=== PATIENT | female | born 1995 | race Caucasian/White ===

== ENCOUNTER 2018-04-02 00:40 | Emergency (ER) | payer BC ==
[2018-04-02 00:50] VITALS: RESP 18
[2018-04-02] MEDS ORDERED: MORPHINE SULFATE 4 MG/ML SYRINGE IV STA (01:55)
[2018-04-02] MEDS ORDERED: SODIUM CHLORIDE 0.9% 1,000 ML IV STA (01:55)
[2018-04-02] MEDS ORDERED: ONDANSETRON 4 MG/2 ML VIAL IVP STA (01:55)
[2018-04-02 02:15] LABS: Appearance,Urine Clear (Clear); Basophils % (A) 0 %; Bilirubin,Urine Negative (Negative); Blood,Urine Negative (Negative); Color,Urine Colorless; Eosinophils # (A) 0.5 k/uL (0-0.7); Eosinophils % (A) 4 %; Glucose,Urine (UA) Negative (Negative); HCT 42.6 % (34.0-46.0); HGB 13.7 gm/dL (11.4-16.0); Ketones,Urine Negative (Negative); Leukocyte Esterase,Urine Negative (Negative); Lymphocytes # (A) 2.8 k/uL (1.0-4.8); Lymphocytes % (A) 26 %; MCH 29.6 pg (25.0-35.0); MCHC 32.3 g/dL (31.0-37.0); MCV 91.8 fL (80.0-100.0); Mean Platelet Volume 5.6; Monocytes % (A) 9 %; Neutrophils # (A) 6.1 k/uL (1.3-7.7); Neutrophils % (A) 58 %; Nitrite,Urine Negative (Negative); Platelet Count 244 k/uL (150-450); Protein,Urine Negative (Negative); RBC 4.64 m/uL (3.80-5.40); RDW 12.2 % (11.5-15.5); Specific Gravity,Urine 1.004 (1.001-1.035); Urobilinogen,Urine <2.0 mg/dL (<2.0); WBC 10.6 k/uL (3.8-10.6)
[2018-04-02 02:24] LABS: ALT 31 U/L (9-52); AST 20 U/L (14-36); Albumin 3.7 g/dL (3.5-5.0); Alkaline Phosphatase 81 U/L (38-126); Amylase 34 U/L (30-110); Anion Gap 7 mmol/L; Blood Urea Nitrogen 16 mg/dL (7-17); Calcium 9.3 mg/dL (8.4-10.2); Carbon Dioxide 24 mmol/L (22-30); Chloride 107 mmol/L (98-107); Glucose 97 mg/dL (74-99); Lipase 46 U/L (23-300); Potassium 4.3 mmol/L (3.5-5.1); Sodium 138 mmol/L (137-145); Total Bilirubin 0.3 mg/dL (0.2-1.3); Total Protein 6.4 g/dL (6.3-8.2)
--- NOTE | 2018-04-02 02:43 | XR ---
EXAMINATION TYPE: XR KUB DATE OF EXAM: 04/02/2018 COMPARISON: NONE HISTORY: Abdominal pain TECHNIQUE: 2 views FINDINGS: Bowel gas pattern is normal. There is no sign of intestinal obstruction or pneumoperitoneum . Fecal pattern is normal. Lung bases are clear. There are no pathologic calcifications over the kidn eys. IMPRESSION: Nonacute abdomen.
[2018-04-02] MEDS ORDERED: ACET/COD 300 MG/30 MG STARTER PACK 6 TAB BTL PO STA (03:00)
--- NOTE | 2018-04-02 03:00 | ED ---
Abdominal Pain HPI - General Chief Complaint: Abdominal Pain Stated Complaint: abd pain Time Seen by Provider: 04/02/18 01:26 Source: patient Mode of arrival: ambulatory Limitations: no limitations - History of Present Illness Initial Comments: 22-year-old female patient presents to the emergency department today for evaluation of lower abdominal pain. Patient states that pain started earlier today and has been progressively worsening. Patient states that the pain radiates across her entire lower abdomen. States that 2 days ago she had similar type pain and did have 2-3 episodes of diarrhea. Patient states she has not had a bowel movement since . Denies any hematuria, dysuria, urinary frequency, urinary urgency. She denies any abnormal vaginal bleeding or discharge. Denies any nausea or vomiting with this. States she is not concerned for or STDs. He does have a history of PCR is was recently started on metformin. Denies any history of abdominal surgery. Patient denies any recent rash, fever, chills, shortness breath, chest pain, back pain, numbness, tingling, dizziness, weakness, hematuria, dysuria, urinary urgency, urinary frequency, headache, visual changes, or any other complaints. - Related Data Previous Rx's Medication Instructions Recorded Docusate [Colace] 100 mg PO DAILY #15 capsule 04/02/18 Allergies Allergy/AdvReac Type Severity Reaction Status Date / Time No Known Allergies Allergy Verified 04/02/18 00:50 Review of Systems ROS Statement: Those systems with pertinent positive or pertinent negative responses have been documented in the HPI. ROS Other: All systems not noted in ROS Statement are negative. Past Medical History Additional Past Medical History / Comment(s): PCOS History of Any Multi-Drug Resistant Organisms: None Reported Past Surgical History: No Surgical Hx Reported Past Psychological History: No Psychological Hx Reported Smoking Status: Current every day smoker Past Alcohol Use History: Occasional Past Drug Use History: Marijuana General Exam Limitations: no limitations General appearance: alert, in no apparent distress, other (Physical well- developed, well-nourished adult female patient in no acute distress. Vital signs upon presentation are temperature 98.9F, pulse 86, respirations 18, blood pressure 106/64, pulse ox 97% on room air.) Eye exam: Present: normal appearance, PERRL, EOMI. Absent: scleral icterus, conjunctival injection, periorbital swelling ENT exam: Present: normal exam, normal oropharynx, mucous membranes moist Respiratory exam: Present: normal lung sounds bilaterally. Absent: respiratory distress, wheezes, rales, rhonchi, stridor Cardiovascular Exam: Present: regular rate, normal rhythm, normal heart sounds. Absent: systolic murmur, diastolic murmur, rubs, gallop, clicks GI/Abdominal exam: Present: soft, tenderness (Mild lower abdominal tenderness), normal bowel sounds. Absent: distended, guarding, rebound, rigid Back exam: Present: normal inspection. Absent: CVA tenderness (R), CVA tenderness (L) Neurological exam: Present: alert, oriented X3, CN II-XII intact Psychiatric exam: Present: normal affect, normal mood Skin exam: Present: warm, dry, intact, normal color. Absent: rash Course Vital Signs 04/02/18 04/02/18 00:46 03:32 Temperature 98.9 F 97.9 F Pulse Rate 86 82 Respiratory 18 18 Rate Blood Pressure 106/64 133/80 O2 Sat by Pulse 97 98 Oximetry Medical Decision Making - Medical Decision Making 22-year-old female patient presents to the emergency department today for evaluation of lower abdominal pain. Physical examination did reveal some mild lower abdominal tenderness. Labs reviewed and are unremarkable. Urinalysis negative. HCG negative. Patient was given IV fluids, pain medication, upon reevaluation she is feeling better. Will be discharged home with prescription for Colace for stool softener per her request. She is instructed to follow-up with her primary care physician as well as her big data engineer for further evaluation. Return parameters were discussed in detail. She verbalizes understanding and agrees with this plan - Lab Data Result diagrams: 04/02/18 02:05 04/02/18 02:05 Lab Results 04/02/18 04/02/18 04/02/18 Range/Units 02:05 02:05 02:05 WBC 10.6 (3.8-10.6) k/uL RBC 4.64 (3.80-5.40) m/uL Hgb 13.7 (11.4-16.0) gm/dL Hct 42.6 (34.0-46.0) % MCV 91.8 (80.0-100.0) fL MCH 29.6 (25.0-35.0) pg MCHC 32.3 (31.0-37.0) g/dL RDW 12.2 (11.5-15.5) % Plt Count 244 (150-450) k/uL Neutrophils % 58 % Lymphocytes % 26 % Monocytes % 9 % Eosinophils % 4 % Basophils % 0 % Neutrophils # 6.1 (1.3-7.7) k/uL Lymphocytes # 2.8 (1.0-4.8) k/uL Monocytes # 1.0 (0-1.0) k/uL Eosinophils # 0.5 (0-0.7) k/uL Basophils # 0.0 (0-0.2) k/uL Sodium 138 (137-145) mmol/L Potassium 4.3 (3.5-5.1) mmol/L Chloride 107 (98-107) mmol/L Carbon Dioxide 24 (22-30) mmol/L Anion Gap 7 mmol/L BUN 16 (7-17) mg/dL Creatinine 0.68 (0.52-1.04) mg/dL Est GFR (CKD-EPI)AfAm >90 (>60 ml/min/1.73 sqM) Est GFR (CKD-EPI)NonAf >90 (>60 ml/min/1.73 sqM) Glucose 97 (74-99) mg/dL Calcium 9.3 (8.4-10.2) mg/dL Total Bilirubin 0.3 (0.2-1.3) mg/dL AST 20 (14-36) U/L ALT 31 (9-52) U/L Alkaline Phosphatase 81 (38-126) U/L Total Protein 6.4 (6.3-8.2) g/dL Albumin 3.7 (3.5-5.0) g/dL Amylase 34 (30-110) U/L Lipase 46 (23-300) U/L Urine Color Urine Appearance (Clear) Urine pH (5.0-8.0) Ur Specific [place] (1.001-1.035) Urine Protein (Negative) Urine Glucose (UA) (Negative) Urine Ketones (Negative) Urine Blood (Negative) Urine Nitrite (Negative) Urine Bilirubin (Negative) Urine Urobilinogen (<2.0) mg/dL Ur Leukocyte Esterase (Negative) Urine HCG, Qual Not Detected (Not Detectd) 04/02/18 Range/Units 02:05 WBC (3.8-10.6) k/uL RBC (3.80-5.40) m/uL Hgb (11.4-16.0) gm/dL Hct (34.0-46.0) % MCV (80.0-100.0) fL MCH (25.0-35.0) pg MCHC (31.0-37.0) g/dL RDW (11.5-15.5) % Plt Count (150-450) k/uL Neutrophils % % Lymphocytes % % Monocytes % % Eosinophils % % Basophils % % Neutrophils # (1.3-7.7) k/uL Lymphocytes # (1.0-4.8) k/uL Monocytes # (0-1.0) k/uL Eosinophils # (0-0.7) k/uL Basophils # (0-0.2) k/uL Sodium (137-145) mmol/L Potassium (3.5-5.1) mmol/L Chloride (98-107) mmol/L Carbon Dioxide (22-30) mmol/L Anion Gap mmol/L BUN (7-17) mg/dL Creatinine (0.52-1.04) mg/dL Est GFR (CKD-EPI)AfAm (>60 ml/min/1.73 sqM) Est GFR (CKD-EPI)NonAf (>60 ml/min/1.73 sqM) Glucose (74-99) mg/dL Calcium (8.4-10.2) mg/dL Total Bilirubin (0.2-1.3) mg/dL AST (14-36) U/L ALT (9-52) U/L Alkaline Phosphatase (38-126) U/L Total Protein (6.3-8.2) g/dL Albumin (3.5-5.0) g/dL Amylase (30-110) U/L Lipase (23-300) U/L Urine Color Colorless Urine Appearance Clear (Clear) Urine pH 5.0 (5.0-8.0) Ur Specific [place] 1.004 (1.001-1.035) Urine Protein Negative (Negative) Urine Glucose (UA) Negative (Negative) Urine Ketones Negative (Negative) Urine Blood Negative (Negative) Urine Nitrite Negative (Negative) Urine Bilirubin Negative (Negative) Urine Urobilinogen <2.0 (<2.0) mg/dL Ur Leukocyte Esterase Negative (Negative) Urine HCG, Qual (Not Detectd) - Radiology Data Radiology results: report reviewed, image reviewed X-ray of the abdomen is obtained. Report was reviewed in its entirety. Impression by Dr. Dennison shows nonacute abdomen. Disposition Clinical Impression: Abdominal pain Disposition: HOME SELF-CARE Condition: Good Instructions: Abdominal Pain (ED) Additional Instructions: Take medication as directed. Follow up with primary care physician and big data engineer for further evaluation. Return immediately for any new, worsening, or concerning symptoms. Prescriptions: Docusate [Colace] 100 mg PO DAILY #15 capsule Is patient prescribed a controlled substance at d/c from ED?: No Referrals: Vero Mccarthy MD [Primary Care Provider] - 1-2 days Time of Disposition: 03:00
[2018-04-02 03:33] VITALS: BP 133/80; PULSE 82; TEMP 97.9
== END 2018-04-02 03:33 | disposition home or self-care (01) ==
LOC: EC 00:40
DX: R10.30 Lower abdominal pain, unspecified (principal); F17.200 Nicotine dependence, unspecified, uncomplicated
CPT/HCPCS: 36415; 80053; 82150; 83690; 85025; 81003; 81025; 74018; 99284; 96374; 96375; 96361; J2270; J2405

== ENCOUNTER → 2018-04-13 | Outpatient (CLI) | payer BC ==
--- NOTE | 2018-04-13 16:28 | US ---
EXAMINATION TYPE: US abdomen complete DATE OF EXAM: 04/13/2018 COMPARISON: NONE CLINICAL HISTORY: R10.30 LOWER ABD PAIN. EXAM MEASUREMENTS: Liver Length: 17.0 cm Gallbladder Wall: 0.1 cm CBD: 0.2 cm Spleen: 8.8 cm Right Kidney: 11.5x3.8x3.9 cm Left Kidney: 11.0x4.9x4.1 cm Pancreas: l obscured by overlying bowel gas Liver: wnl Gallbladder: wnl Evidence for sonographic Roman's sign: No CBD: wnl Spleen: wnl Right Kidney: No hydronephrosis or masses seen Left Kidney: probable calculi upper pole 0.7 x 0.5 x 0.5 cm Upper IVC: wnl Abd Aorta: wnl IMPRESSION: 1. Nonobstructing left renal stone.
--- NOTE | 2018-04-13 16:31 | US ---
EXAMINATION TYPE: US pelvis complete transvag DATE OF EXAM: 04/13/2018 COMPARISON: NONE CLINICAL HISTORY: R10.30 Lower abdominal pain. TECHNIQUE: . Transabdominal sonographic images of the pelvis were acquired. Transvaginal sonographi c images were medically necessary to better assess the following anatomy: luanne ovaries Date of LMP: 03/18/2018 EXAM MEASUREMENTS: Uterus: 6.8 x 3.0 x 4.1 cm cm Endometrial Stripe: 1.2 cm Right Ovary: 3.4 x 1.7 x 1.5 cm Left Ovary: 3.7 x 2.1 x 3.9 cm 1. Uterus: Anteverted wnl 2. Endometrium: lower portion 0.6 x 0.3 x 0.6 cm 3. Right Ovary: multi cystic ovaries 4. Left Ovary: multi cystic ovaries 5. Bilateral Adnexa: wnl 6. Posterior cul-de-sac: small amount of fluid IMPRESSION: 1. Normal pelvic ultrasound
== END | disposition home or self-care (01) ==
LOC: RADUSWWP 07:02
PROVIDERS: ATTEND Family Medicine
DX: N20.0 Calculus of kidney (principal); R10.30 Lower abdominal pain, unspecified
CPT/HCPCS: 76700; 76830; 76856

== ENCOUNTER 2018-09-05 11:28 | Emergency (ER) | payer BC ==
[2018-09-05 12:16] VITALS: BP 123/76; PULSE 84; RESP 18; TEMP 98.4
[2018-09-05 12:45] LABS: Appearance,Urine Cloudy (Clear); Bilirubin,Urine Negative (Negative); Blood,Urine Negative (Negative); Color,Urine Yellow; Glucose,Urine (UA) Negative (Negative); Ketones,Urine 1+ (Negative); Leukocyte Esterase,Urine Negative (Negative); Mucus,Urine Many /hpf; Nitrite,Urine Negative (Negative); PH, Urine 5.5 (5.0-8.0); Protein,Urine 1+ (Negative); RBC,Urine 1 /hpf (0-5); Specific Gravity,Urine 1.029 (1.001-1.035); Squamous Epithelial Cell,Urine 4 /hpf (0-4)
[2018-09-05] MEDS ORDERED: METOCLOPRAMIDE 5 MG/ML 2 ML VIAL IVP STA (12:49)
[2018-09-05] MEDS ORDERED: SODIUM CHLORIDE 0.9% 1,000 ML IV STA (12:50)
[2018-09-05 13:03] LABS: Basophils % (A) 0 %; Eosinophils # (A) 0.3 k/uL (0-0.7); Eosinophils % (A) 3 %; HCT 43.3 % (34.0-46.0); HGB 14.5 gm/dL (11.4-16.0); Lymphocytes # (A) 2.5 k/uL (1.0-4.8); Lymphocytes % (A) 27 %; MCH 29.6 pg (25.0-35.0); MCHC 33.5 g/dL (31.0-37.0); MCV 88.3 fL (80.0-100.0); Mean Platelet Volume 6.6; Monocytes # (A) 0.6 k/uL (0-1.0); Monocytes % (A) 6 %; Neutrophils # (A) 5.9 k/uL (1.3-7.7); Neutrophils % (A) 62 %; Platelet Count 326 k/uL (150-450); RDW 14.1 % (11.5-15.5); WBC 9.6 k/uL (3.8-10.6)
[2018-09-05 13:11] LABS: ALT 26 U/L (9-52); AST 23 U/L (14-36); African American GFR (CKD) >90 (>60 ml/min/1.73 sqM); Albumin 4.7 g/dL (3.5-5.0); Alkaline Phosphatase 82 U/L (38-126); Anion Gap 9 mmol/L; Blood Urea Nitrogen 10 mg/dL (7-17); Calcium 9.8 mg/dL (8.4-10.2); Carbon Dioxide 26 mmol/L (22-30); Chloride 105 mmol/L (98-107); Glucose 104 mg/dL (74-99); Potassium 3.8 mmol/L (3.5-5.1); Sodium 140 mmol/L (137-145); Total Bilirubin 0.4 mg/dL (0.2-1.3); Total Protein 7.8 g/dL (6.3-8.2)
--- NOTE | 2018-09-05 13:21 | ED ---
Nausea/Vomiting/Diarrhea HPI - General Chief complaint: Nausea/Vomiting/Diarrhea Stated complaint: Vomiting/diarrhea Time Seen by Provider: 09/05/18 12:39 Source: patient Mode of arrival: ambulatory Limitations: no limitations - History of Present Illness Initial comments: Patient is a 22-year-old female presenting to the emergency room with complaints of nausea and diarrhea x one week. Patient states she went to urgent care yesterday and received Zofran but its not helping. Patient denies any recent travel except to [place] for one day about 2 weeks ago. Patient denies any new foods or medications. Patient admits to generalized abdominal tenderness and cramping, mostly in the lower abdominal area. Patient states the diarrhea has been about every hour and does report a small amount of blood mixed in. Patient denies any abdominal surgeries in the past. - Related Data Previous Rx's Medication Instructions Recorded Docusate [Colace] 100 mg PO DAILY #15 capsule 04/02/18 Metoclopramide [Reglan] 10 mg PO TID PRN #15 tab 09/05/18 Allergies Allergy/AdvReac Type Severity Reaction Status Date / Time No Known Allergies Allergy Verified 09/05/18 12:16 Review of Systems ROS Statement: Those systems with pertinent positive or pertinent negative responses have been documented in the HPI. ROS Other: All systems not noted in ROS Statement are negative. Past Medical History Additional Past Medical History / Comment(s): PCOS History of Any Multi-Drug Resistant Organisms: None Reported Past Surgical History: No Surgical Hx Reported Past Psychological History: No Psychological Hx Reported Smoking Status: Current every day smoker Past Alcohol Use History: Occasional Past Drug Use History: Marijuana General Exam - General Exam Comments Initial Comments: GENERAL: Well-appearing, well-nourished and in no acute distress. HEAD: Atraumatic, normocephalic. EYES: Pupils equal round and reactive to light, extraocular movements intact, sclera anicteric, conjunctiva are normal. ENT: TMs normal, nares patent, oropharynx clear without exudates. Moist mucous membranes. NECK: Normal range of motion, supple without lymphadenopathy or JVD. LUNGS: Breath sounds clear to auscultation bilaterally and equal. No wheezes rales or rhonchi. HEART: Regular rate and rhythm without murmurs, rubs or gallops. ABDOMEN: Generalized abdominal tenderness. Soft, normoactive bowel sounds. No guarding, no rebound. No masses appreciated. : Deferred EXTREMITIES: Normal range of motion, no pitting or edema. No clubbing or cyanosis. NEUROLOGICAL: Cranial nerves II through XII grossly intact. Normal speech, normal gait. PSYCH: Normal mood, normal affect. SKIN: Warm, Dry, normal turgor, no rashes or lesions noted. Limitations: no limitations Course Vital Signs 09/05/18 12:13 Temperature 98.4 F Pulse Rate 84 Respiratory 18 Rate Blood Pressure 123/76 O2 Sat by Pulse 97 Oximetry Medical Decision Making - Medical Decision Making Patient is a 22-year-old female complaining of nausea and diarrhea x one week. Patient denies any recent travel except to [place] for 1 day about 2 weeks ago. Patient denies any recent medications or new foods. CBC, CMP, UA are all within normal limits. Patient received some fluids and Reglan and reports improvement. Patient will be discharged home with Reglan and Imodium. Patient also counseled to follow up with PCP for further management of symptoms continue. Patient was given outpatient stool culture prescription. Case discussed with Dr. Ruiz. - Lab Data Result diagrams: 09/05/18 12:45 09/05/18 12:45 Lab Results 09/05/18 09/05/18 09/05/18 Range/Units 12:24 12:24 12:45 WBC 9.6 (3.8-10.6) k/uL RBC 4.90 (3.80-5.40) m/uL Hgb 14.5 (11.4-16.0) gm/dL Hct 43.3 (34.0-46.0) % MCV 88.3 (80.0-100.0) fL MCH 29.6 (25.0-35.0) pg MCHC 33.5 (31.0-37.0) g/dL RDW 14.1 (11.5-15.5) % Plt Count 326 (150-450) k/uL Neutrophils % 62 % Lymphocytes % 27 % Monocytes % 6 % Eosinophils % 3 % Basophils % 0 % Neutrophils # 5.9 (1.3-7.7) k/uL Lymphocytes # 2.5 (1.0-4.8) k/uL Monocytes # 0.6 (0-1.0) k/uL Eosinophils # 0.3 (0-0.7) k/uL Basophils # 0.0 (0-0.2) k/uL Sodium (137-145) mmol/L Potassium (3.5-5.1) mmol/L Chloride (98-107) mmol/L Carbon Dioxide (22-30) mmol/L Anion Gap mmol/L BUN (7-17) mg/dL Creatinine (0.52-1.04) mg/dL Est GFR (CKD-EPI)AfAm (>60 ml/min/1.73 sqM) Est GFR (CKD-EPI)NonAf (>60 ml/min/1.73 sqM) Glucose (74-99) mg/dL Calcium (8.4-10.2) mg/dL Total Bilirubin (0.2-1.3) mg/dL AST (14-36) U/L ALT (9-52) U/L Alkaline Phosphatase (38-126) U/L Total Protein (6.3-8.2) g/dL Albumin (3.5-5.0) g/dL Urine Color Yellow Urine Appearance Cloudy H (Clear) Urine pH 5.5 (5.0-8.0) Ur Specific [place] 1.029 (1.001-1.035) Urine Protein 1+ H (Negative) Urine Glucose (UA) Negative (Negative) Urine Ketones 1+ H (Negative) Urine Blood Negative (Negative) Urine Nitrite Negative (Negative) Urine Bilirubin Negative (Negative) Urine Urobilinogen 2.0 (<2.0) mg/dL Ur Leukocyte Esterase Negative (Negative) Urine RBC 1 (0-5) /hpf Urine WBC 2 (0-5) /hpf Ur Squamous Epith Cells 4 (0-4) /hpf Urine Mucus Many H (None) /hpf Urine HCG, Qual Not Detected (Not Detectd) 09/05/18 Range/Units 12:45 WBC (3.8-10.6) k/uL RBC (3.80-5.40) m/uL Hgb (11.4-16.0) gm/dL Hct (34.0-46.0) % MCV (80.0-100.0) fL MCH (25.0-35.0) pg MCHC (31.0-37.0) g/dL RDW (11.5-15.5) % Plt Count (150-450) k/uL Neutrophils % % Lymphocytes % % Monocytes % % Eosinophils % % Basophils % % Neutrophils # (1.3-7.7) k/uL Lymphocytes # (1.0-4.8) k/uL Monocytes # (0-1.0) k/uL Eosinophils # (0-0.7) k/uL Basophils # (0-0.2) k/uL Sodium 140 (137-145) mmol/L Potassium 3.8 (3.5-5.1) mmol/L Chloride 105 (98-107) mmol/L Carbon Dioxide 26 (22-30) mmol/L Anion Gap 9 mmol/L BUN 10 (7-17) mg/dL Creatinine 0.77 (0.52-1.04) mg/dL Est GFR (CKD-EPI)AfAm >90 (>60 ml/min/1.73 sqM) Est GFR (CKD-EPI)NonAf >90 (>60 ml/min/1.73 sqM) Glucose 104 H (74-99) mg/dL Calcium 9.8 (8.4-10.2) mg/dL Total Bilirubin 0.4 (0.2-1.3) mg/dL AST 23 (14-36) U/L ALT 26 (9-52) U/L Alkaline Phosphatase 82 (38-126) U/L Total Protein 7.8 (6.3-8.2) g/dL Albumin 4.7 (3.5-5.0) g/dL Urine Color Urine Appearance (Clear) Urine pH (5.0-8.0) Ur Specific [place] (1.001-1.035) Urine Protein (Negative) Urine Glucose (UA) (Negative) Urine Ketones (Negative) Urine Blood (Negative) Urine Nitrite (Negative) Urine Bilirubin (Negative) Urine Urobilinogen (<2.0) mg/dL Ur Leukocyte Esterase (Negative) Urine RBC (0-5) /hpf Urine WBC (0-5) /hpf Ur Squamous Epith Cells (0-4) /hpf Urine Mucus (None) /hpf Urine HCG, Qual (Not Detectd) Disposition Clinical Impression: Dehydration, Diarrhea, Gastroenteritis Disposition: HOME SELF-CARE Condition: Stable Instructions (If sedation given, give patient instructions): Acute Nausea and Vomiting (ED), Acute Diarrhea (ED) Additional Instructions: Please return to the Emergency Department if symptoms worsen or any other concerns. Follow-up with PCP if symptoms continue. Prescriptions: Metoclopramide [Reglan] 10 mg PO TID PRN #15 tab PRN Reason: Nausea Is patient prescribed a controlled substance at d/c from ED?: No Referrals: Vero Mccarthy MD [Primary Care Provider] - 1-2 days
== END 2018-09-05 14:29 | disposition home or self-care (01) ==
LOC: EC 11:28
DX: K52.9 Noninfective gastroenteritis and colitis, unspecified (principal); E86.0 Dehydration; F17.200 Nicotine dependence, unspecified, uncomplicated
CPT/HCPCS: 36415; 80053; 85025; 81001; 81025; 99284; 96374; 96361; J2765

== ENCOUNTER 2019-09-04 20:21 | Emergency (ER) | payer BC, MEDICARE, OTHER ==
[2019-09-04 20:28] VITALS: BP 133/70; PULSE 77; RESP 18; TEMP 98.2
[2019-09-04 21:08] LABS: Basophils % (A) 0 %; Eosinophils # (A) 0.3 k/uL (0-0.7); Eosinophils % (A) 3 %; HCT 34.8 % (34.0-46.0); Lymphocytes # (A) 2.5 k/uL (1.0-4.8); Lymphocytes % (A) 20 %; MCH 31.6 pg (25.0-35.0); MCHC 34.5 g/dL (31.0-37.0); MCV 91.4 fL (80.0-100.0); Mean Platelet Volume 6.5; Monocytes # (A) 0.7 k/uL (0-1.0); Monocytes % (A) 5 %; Neutrophils % (A) 71 %; Platelet Count 268 k/uL (150-450); RBC 3.81 m/uL (3.80-5.40); RDW 12.6 % (11.5-15.5); WBC 12.7 k/uL (3.8-10.6)
[2019-09-04 21:09] LABS: Appearance,Urine Cloudy (Clear); Bilirubin,Urine Negative (Negative); Blood,Urine Negative (Negative); Calcium Oxalate Crystals,Urine Rare /hpf; Color,Urine Yellow; Glucose,Urine (UA) Negative (Negative); Hyaline Casts,Urine 1 /lpf (0-2); Ketones,Urine Negative (Negative); Leukocyte Esterase,Urine Negative (Negative); Mucus,Urine Rare /hpf; Nitrite,Urine Negative (Negative); PH, Urine 5.5 (5.0-8.0); Protein,Urine Negative (Negative); Specific Gravity,Urine 1.014 (1.001-1.035); Squamous Epithelial Cell,Urine 6 /hpf (0-4); Urobilinogen,Urine <2.0 mg/dL (<2.0); WBC,Urine 3 /hpf (0-5)
[2019-09-04 21:15] LABS: ALT 15 U/L (4-34); AST 21 U/L (14-36); African American GFR (CKD) >90 (>60 ml/min/1.73 sqM); Albumin 3.7 g/dL (3.5-5.0); Alkaline Phosphatase 51 U/L (38-126); Anion Gap 8 mmol/L; Blood Urea Nitrogen 9 mg/dL (7-17); Calcium 9.1 mg/dL (8.4-10.2); Carbon Dioxide 22 mmol/L (22-30); Chloride 104 mmol/L (98-107); Glucose 93 mg/dL (74-99); Non-African American GFR(CKD) >90 (>60 ml/min/1.73 sqM); Sodium 134 mmol/L (137-145); Total Bilirubin 0.1 mg/dL (0.2-1.3); Total Protein 6.7 g/dL (6.3-8.2)
--- NOTE | 2019-09-04 21:25 | ED ---
Female Urogenital HPI - General Source: patient Mode of arrival: ambulatory Limitations: no limitations <Isis Stark - Last Filed: 09/04/19 23:21> <Reba Stack - Last Filed: 09/06/19 13:52> - General Chief complaint: Urogenital Stated complaint: Vaginal Bleeding 16 Weeks Preg Time Seen by Provider: 09/04/19 20:32 - History of Present Illness Initial comments: 23yo female presenting today for chief complaint of vaginal bleeding in . Patient states she is approximately 16 weeks she states she had her first ultrasound 8 weeks ago which revealed an intrauterine with no complication. Patient states that today approximately an hour prior to arrival she went to the bathroom and noticed but red blood on the toilet paper. Patient states is a small amount but still worrisome and then presented emergency department for evaluation for vaginal bleeding and . Patient states she has not feels this kind E throughout denies dysuria urgency frequency flank pain. Patient states she has very mild pelvic cramping. Denies any unilateral pain. Patient denies any vaginal discharge concern for sexual transmitted diseases patient is no additional complaints upon arrival patient appears well in no acute distress denies significant pain (Isis Stark) - Related Data Previous Rx's Medication Instructions Recorded Docusate [Colace] 100 mg PO DAILY #15 capsule 04/02/18 Metoclopramide [Reglan] 10 mg PO TID PRN #15 tab 09/05/18 Allergies Allergy/AdvReac Type Severity Reaction Status Date / Time No Known Allergies Allergy Verified 09/04/19 20:28 Review of Systems ROS Other: All systems not noted in ROS Statement are negative. <Isis Stark - Last Filed: 09/04/19 23:21> ROS Other: All systems not noted in ROS Statement are negative. <Reba Stack - Last Filed: 09/06/19 13:52> ROS Statement: Those systems with pertinent positive or pertinent negative responses have been documented in the HPI. Past Medical History Additional Past Medical History / Comment(s): PCOS History of Any Multi-Drug Resistant Organisms: None Reported Past Surgical History: No Surgical Hx Reported Past Psychological History: No Psychological Hx Reported Smoking Status: Former smoker Past Alcohol Use History: Occasional Past Drug Use History: Marijuana <Isis Stark - Last Filed: 09/04/19 23:21> General Exam Limitations: no limitations <JulianmaryOsirisIsis L - Last Filed: 09/04/19 23:21> - General Exam Comments Initial Comments: General: The patient is awake and alert, in no distress Eye: +3 mm pupils are equal, round and reactive to light, extra-ocular movements are intact. No nystagmus. There is normal conjunctiva bilaterally. No signs of icterus. Ears, nose, mouth and throat: There are moist mucous membranes and no oral lesions. Neck: The neck is supple, there is no tenderness or JVD. Cardiovascular: There is a regular rate and rhythm. No murmur, rub or gallop is appreciated. Respiratory: Lungs are clear to auscultation, respirations are non-labored, breath sounds are equal. No wheezes, stridor, rales, or rhonchi. Gastrointestinal: Soft, non-distended, non-tender abdomen without masses or organomegaly noted. There is no rebound or guarding present. Pelvic: OS closed, scant amount of discharge, no blood in the vault. Musculoskeletal: Normal ROM, no tenderness. Strength 5/5. Sensation intact. Radial pulses equal bilaterally 2+. Neurological: A&O x 3. CN II-XII intact grossly, There are no obvious motor or sensory deficits. Coordination appears grossly intact. Speech is normal. Skin: Skin is warm and dry and no rashes or lesions are noted. Psychiatric: Cooperative, appropriate mood & affect, normal judgment. (Isis Stark) Course Vital Signs 09/04/19 20:25 Temperature 98.2 F Pulse Rate 77 Respiratory 18 Rate Blood Pressure 133/70 O2 Sat by Pulse 98 Oximetry Medical Decision Making - Lab Data Result diagrams: 09/04/19 20:50 09/04/19 20:50 <Isis Stark - Last Filed: 09/04/19 23:21> - Lab Data Result diagrams: 09/04/19 20:50 09/04/19 20:50 <Reba Stack - Last Filed: 09/06/19 13:52> - Medical Decision Making US no complicating process, No pain on exam. No blood in vault. Patient UA contaminated no acute process identified. Patient O+. No rhogam indicted. Has appointment with her OBGYN tomorrow. Will be discharge with f/u, agreeable to care plan and is to return for pain/increased bleeding. Dr. Stack agreeable to care plan. (Isis Stark) I was available for consultation in the emergency department. The history and physical exam were done by the midlevel provider. I was consulted for this patients care. I reviewed the case with the midlevel provider and based on their presentation of the patient, I agree with the assessment, medical decision making and plan of care as documented. Chart was dictated using [employer] dictation software. Attempts were made to correct any dictation errors however some typographical errors may persist. Patient was seen during a national state of emergency due to the Covid-19 pandemic. (Reba Stack) - Lab Data Lab Results 09/04/19 09/04/19 09/04/19 Range/Units 20:50 20:50 20:50 WBC 12.7 H (3.8-10.6) k/uL RBC 3.81 (3.80-5.40) m/uL Hgb 12.0 (11.4-16.0) gm/dL Hct 34.8 (34.0-46.0) % MCV 91.4 (80.0-100.0) fL MCH 31.6 (25.0-35.0) pg MCHC 34.5 (31.0-37.0) g/dL RDW 12.6 (11.5-15.5) % Plt Count 268 (150-450) k/uL Neutrophils % 71 % Lymphocytes % 20 % Monocytes % 5 % Eosinophils % 3 % Basophils % 0 % Neutrophils # 9.0 H (1.3-7.7) k/uL Lymphocytes # 2.5 (1.0-4.8) k/uL Monocytes # 0.7 (0-1.0) k/uL Eosinophils # 0.3 (0-0.7) k/uL Basophils # 0.0 (0-0.2) k/uL Sodium 134 L (137-145) mmol/L Potassium 4.0 (3.5-5.1) mmol/L Chloride 104 (98-107) mmol/L Carbon Dioxide 22 (22-30) mmol/L Anion Gap 8 mmol/L BUN 9 (7-17) mg/dL Creatinine 0.38 L (0.52-1.04) mg/dL Est GFR (CKD-EPI)AfAm >90 (>60 ml/min/1.73 sqM) Est GFR (CKD-EPI)NonAf >90 (>60 ml/min/1.73 sqM) Glucose 93 (74-99) mg/dL Calcium 9.1 (8.4-10.2) mg/dL Total Bilirubin 0.1 L (0.2-1.3) mg/dL AST 21 (14-36) U/L ALT 15 (4-34) U/L Alkaline Phosphatase 51 (38-126) U/L Total Protein 6.7 (6.3-8.2) g/dL Albumin 3.7 (3.5-5.0) g/dL Urine Color Urine Appearance (Clear) Urine pH (5.0-8.0) Ur Specific Spearfish (1.001-1.035) Urine Protein (Negative) Urine Glucose (UA) (Negative) Urine Ketones (Negative) Urine Blood (Negative) Urine Nitrite (Negative) Urine Bilirubin (Negative) Urine Urobilinogen (<2.0) mg/dL Ur Leukocyte Esterase (Negative) Urine WBC (0-5) /hpf Ur Squamous Epith Cells (0-4) /hpf Calcium Oxalate Crystal (None) /hpf Hyaline Casts (0-2) /lpf Urine Mucus (None) /hpf Urine HCG, Qual (Not Detectd) Trichomonas Ag (Rapid) (Negative) Blood Type O Positive Blood Type Recheck No Previous Record Bld Type Recheck Status ABR ONLY 09/04/19 09/04/19 09/04/19 Range/Units 20:53 20:53 20:53 WBC (3.8-10.6) k/uL RBC (3.80-5.40) m/uL Hgb (11.4-16.0) gm/dL Hct (34.0-46.0) % MCV (80.0-100.0) fL MCH (25.0-35.0) pg MCHC (31.0-37.0) g/dL RDW (11.5-15.5) % Plt Count (150-450) k/uL Neutrophils % % Lymphocytes % % Monocytes % % Eosinophils % % Basophils % % Neutrophils # (1.3-7.7) k/uL Lymphocytes # (1.0-4.8) k/uL Monocytes # (0-1.0) k/uL Eosinophils # (0-0.7) k/uL Basophils # (0-0.2) k/uL Sodium (137-145) mmol/L Potassium (3.5-5.1) mmol/L Chloride (98-107) mmol/L Carbon Dioxide (22-30) mmol/L Anion Gap mmol/L BUN (7-17) mg/dL Creatinine (0.52-1.04) mg/dL Est GFR (CKD-EPI)AfAm (>60 ml/min/1.73 sqM) Est GFR (CKD-EPI)NonAf (>60 ml/min/1.73 sqM) Glucose (74-99) mg/dL Calcium (8.4-10.2) mg/dL Total Bilirubin (0.2-1.3) mg/dL AST (14-36) U/L ALT (4-34) U/L Alkaline Phosphatase (38-126) U/L Total Protein (6.3-8.2) g/dL Albumin (3.5-5.0) g/dL Urine Color Yellow Urine Appearance Cloudy H (Clear) Urine pH 5.5 (5.0-8.0) Ur Specific Spearfish 1.014 (1.001-1.035) Urine Protein Negative (Negative) Urine Glucose (UA) Negative (Negative) Urine Ketones Negative (Negative) Urine Blood Negative (Negative) Urine Nitrite Negative (Negative) Urine Bilirubin Negative (Negative) Urine Urobilinogen <2.0 (<2.0) mg/dL Ur Leukocyte Esterase Negative (Negative) Urine WBC 3 (0-5) /hpf Ur Squamous Epith Cells 6 H (0-4) /hpf Calcium Oxalate Crystal Rare H (None) /hpf Hyaline Casts 1 (0-2) /lpf Urine Mucus Rare H (None) /hpf Urine HCG, Qual Detected (Not Detectd) Trichomonas Ag (Rapid) Negative (Negative) Blood Type Blood Type Recheck Bld Type Recheck Status Disposition Is patient prescribed a controlled substance at d/c from ED?: No Time of Disposition: 22:44 <Isis Stark - Last Filed: 09/04/19 23:21> <Reba Stack - Last Filed: 09/06/19 13:52> Clinical Impression: Vaginal bleeding in Disposition: HOME SELF-CARE Condition: Good Instructions (If sedation given, give patient instructions): Threatened Miscarriage (ED) Additional Instructions: Please use medication as discussed. Please follow-up with your obgyn tomorrow as discussed. Please return to emergency room if the symptoms increase or worsen or for any other concerns. Referrals: Vero Mccarthy MD [Primary Care Provider] - 1-2 days
--- NOTE | 2019-09-04 22:18 | US ---
EXAMINATION TYPE: US OB >= 14 wk fetus DATE OF EXAM: 09/04/2019 COMPARISON: US 2018 CLINICAL HISTORY: painPain x 1 day. Hx PCOS. . TECHNIQUE: Transabdominal (TA) GESTATIONAL AGE / DATING Physician Established: (16 weeks/2 days) EDC: 02/17/2020 Dates by LMP: Unknown Dates by First Scan: This is first scan Dates by Current Scan: (16 weeks/3 days) EDC: 02/16/2020 Beta HCG (if available): Detected SURVEY IUP: Single PLACENTA: Anterior-Fundal PREVIA: No Previa RENAY: 11.62 cm Normal CERVICAL LENGTH (transabdominal: norm > 3.0cm): 3.26 cm BIOMETRY PRESENTATION: Breech BPD: 3.24 cm 16 weeks / 1 day HC: 12.69 cm 16 weeks / 3 days AC: 10.96 cm 16 weeks / 6 days FL: 2.10 cm 16 weeks / 2 days ESTIMATED WEIGHT IN GRAMS: 159.87 grams ESTIMATED WEIGHT IN LBS/OZ: 0 lbs. 6 oz. WEIGHT PERCENTAGE BASED ON ESTABLISHED DATES: 59.0% HC/AC: 1.16 Normal FL/AC: 19.18 HEART RATE: 153 bpm RHYTHM: Normal IMPRESSION: The ultrasound gestational age is 16 weeks and 3 days. No complicating process seen.
[2019-09-06 16:17] LABS: C. trachomatis,PCR Negative (Neg,Equiv); Chlamydia trachomatis Source Vagina; N. gonorrhoeae,PCR Negative (Neg,Equiv); Neisseria Source Vagina
== END 2019-09-04 23:08 | disposition home or self-care (01) ==
LOC: EC 20:21
DX: O46.92 Antepartum hemorrhage, unspecified, second trimester (principal); Z3A.16 16 weeks gestation of pregnancy; Z87.891 Personal history of nicotine dependence; Z87.42 Personal history of other diseases of the female genital tract
CPT/HCPCS: 36415; 76805; 80053; 81001; 81025; 85025; 86900; 86901; 87070; 87491; 87591; 87808; 99284

== ENCOUNTER 2019-10-01 16:01 | Emergency (ER) | payer OTHER ==
[2019-10-01 16:07] VITALS: BP 111/62; PULSE 72; RESP 18; TEMP 97.9
[2019-10-01] MEDS ORDERED: RABIES IMMUNE GLOB 300 UNIT/ML 1 ML VIAL IM ONE (16:17)
[2019-10-01] MEDS ORDERED: RABIES VACCINE (PCEC) 2.5 UNIT KIT IM ONE (16:17)
[2019-10-01] MEDS ORDERED: RABIES IMMUNE GLOB 300 UNIT/ML 5 ML VIAL IM ONE (16:30)
[2019-10-01] MEDS ORDERED: DIPH,PERTUS(ACELL)TETVAC-LF 0.5 ML VIAL IM ONE (16:46)
--- NOTE | 2019-10-01 16:47 | ED ---
Animal Bite HPI - General Chief Complaint: Animal Bite Stated Complaint: L Foot Cat Bite Time Seen by Provider: 10/01/19 16:11 Source: patient Mode of arrival: ambulatory Limitations: no limitations - History of Present Illness Initial Comments: 23-year-old female patient who is approximately 20 weeks presents to the emergency department today for evaluation of after being bit by a cat. Patient states this morning she was feeding a stray cat outside of her home. She states that the cat was rubbing around her ankles then bit her foot. She did go to urgent care was started on augmenting, but they recommended she come here for rabies prophylaxis. Patient denies any other injuries. Denies any abodominal pain, vaginal bleeding, vaginal discharge, or urinary symptoms. She does feel movement. Patient denies any headache, neck pain, back pain, chest pain, shortness of breath, dizziness, weakness, abdominal pain, nausea, vomiting, or difficulties with bowel movements or urination. - Related Data Previous Rx's Medication Instructions Recorded Docusate [Colace] 100 mg PO DAILY #15 capsule 04/02/18 Metoclopramide [Reglan] 10 mg PO TID PRN #15 tab 09/05/18 Allergies Allergy/AdvReac Type Severity Reaction Status Date / Time No Known Allergies Allergy Verified 10/01/19 16:07 Review of Systems ROS Statement: Those systems with pertinent positive or pertinent negative responses have been documented in the HPI. ROS Other: All systems not noted in ROS Statement are negative. Past Medical History Additional Past Medical History / Comment(s): PCOS History of Any Multi-Drug Resistant Organisms: None Reported Past Surgical History: No Surgical Hx Reported Past Psychological History: No Psychological Hx Reported Smoking Status: Former smoker Past Alcohol Use History: None Reported Past Drug Use History: None Reported General Exam Limitations: no limitations General appearance: alert, in no apparent distress, other (This is a well developed, well nourished adult female patient in no acute distress. Vital signs upon presentation are temperature 97.9F, pulse 72, respirations 18, blood pressure 111/62, pulse ox 99% on room air.) Eye exam: Present: normal appearance, PERRL, EOMI. Absent: scleral icterus, conjunctival injection, periorbital swelling ENT exam: Present: normal exam, normal oropharynx, mucous membranes moist Respiratory exam: Present: normal lung sounds bilaterally. Absent: respiratory distress, wheezes, rales, rhonchi, stridor Cardiovascular Exam: Present: regular rate, normal rhythm, normal heart sounds. Absent: systolic murmur, diastolic murmur, rubs, gallop, clicks GI/Abdominal exam: Present: soft, normal bowel sounds. Absent: distended, tenderness, guarding, rebound, rigid Extremities exam: Present: full ROM, normal capillary refill, other (There are puncture wounds noted to the top of the left foot. Mild soft tissue swelling. no erythema. The skin is otherwise pink, warm, dry. Cap refills less than 3 seconds. Pedal and posttibial pulses are 2+ and equal bilaterally.). Absent: normal inspection, tenderness, pedal edema, joint swelling, calf tenderness Neurological exam: Present: alert, oriented X3, CN II-XII intact Psychiatric exam: Present: normal affect, normal mood Skin exam: Present: warm, dry, intact, normal color. Absent: rash Course Vital Signs 10/01/19 16:04 Temperature 97.9 F Pulse Rate 72 Respiratory 18 Rate Blood Pressure 111/62 O2 Sat by Pulse 99 Oximetry Medical Decision Making - Medical Decision Making 23-year-old female patient presented to the emergency department today for evaluation of Right to the left foot. Physical examination did reveal puncture wounds to the dorsal aspect of the left foot. Patient was started on Augmentin at urgent care presented here for rabies prophylaxis. Rabies prophylaxis is being safe in so we did administer immune globulin and immunization. Patient was given a prescription for repeat immunizations on days 3, 7, and 14. She is instructed to follow-up with her primary care physician for recheck in 1-2 days. She is instructed to follow-up with her [employer] for recheck as needed. Return parameters were discussed in detail. She verbalizes understanding and agrees with this plan. Disposition Clinical Impression: Cat bite of left foot Disposition: HOME SELF-CARE Condition: Good Instructions (If sedation given, give patient instructions): Animal Bite (ED) Additional Instructions: Keep area clean and dry. Complete antibiotic prescription and full. Follow-up with your primary care physician for recheck in 1-2 days. Update your [employer] on medication dosing. Return to the emergency department immediately for any new, worsening, or concerning symptoms. Is patient prescribed a controlled substance at d/c from ED?: No Referrals: None,Stated [Primary Care Provider] - 1-2 days Time of Disposition: 16:47
== END 2019-10-01 17:08 | disposition home or self-care (01) ==
LOC: EC 16:01
DX: O99.712 Diseases of the skin and subcutaneous tissue complicating pregnancy, second trimester (principal); S91.352A Open bite, left foot, initial encounter; Z20.3 Contact with and (suspected) exposure to rabies; Z23 Encounter for immunization; Z87.891 Personal history of nicotine dependence; Z3A.20 20 weeks gestation of pregnancy; Z87.42 Personal history of other diseases of the female genital tract; W55.01XA Bitten by cat, initial encounter; Y93.89 Activity, other specified; Y92.89 Other specified places as the place of occurrence of the external cause
CPT/HCPCS: 90375; 90471; 90675; 90715; 96372; 99283

== ENCOUNTER 2020-06-18 14:59 | Emergency (ER) | payer OTHER ==
[2020-06-18 15:19] VITALS: BP 135/80; PULSE 117; RESP 22; TEMP 99.4
[2020-06-18] MEDS ORDERED: BACITRACIN OINT 1 EACH PACKET TOPICAL ONE (16:23)
[2020-06-18] MEDS ORDERED: KETOROLAC 15 MG/ML 1 ML VIAL IM STA (16:23)
--- NOTE | 2020-06-18 17:09 | ED ---
Animal Bite HPI - General Chief Complaint: Animal Bite Stated Complaint: Dog Bite on thighs Time Seen by Provider: 06/18/20 16:00 Source: patient Mode of arrival: ambulatory Limitations: no limitations - History of Present Illness Initial Comments: Patient is a 24-year-old female presenting to the emergency Department with complaints of a dog bite wounds to her posterior upper legs. Patient states she went to her sister's house and went to walk away from one of their dogs when the dog jumped and bit her on the posterior legs. She states this happened just prior to arrival. The dog is up-to-date with the rabies vaccine. Patient is up-to-date with her tetanus vaccine. Bleeding is controlled. She did not take anything for pain yet. She has no further complaints. - Related Data Previous Rx's Medication Instructions Recorded Docusate [Colace] 100 mg PO DAILY #15 capsule 04/02/18 Metoclopramide [Reglan] 10 mg PO TID PRN #15 tab 09/05/18 Amoxicillin/Potassium Clav 1 tab PO BID 7 Days #14 tab 06/18/20 [Augmentin 875-125 Tablet] Ibuprofen [Motrin] 600 mg PO Q8HR PRN #30 tab 06/18/20 Allergies Allergy/AdvReac Type Severity Reaction Status Date / Time No Known Allergies Allergy Verified 06/18/20 15:19 Review of Systems ROS Statement: Those systems with pertinent positive or pertinent negative responses have been documented in the HPI. ROS Other: All systems not noted in ROS Statement are negative. Past Medical History Additional Past Medical History / Comment(s): PCOS History of Any Multi-Drug Resistant Organisms: None Reported Past Surgical History: Section Past Psychological History: No Psychological Hx Reported Smoking Status: Current every day smoker Past Alcohol Use History: None Reported Past Drug Use History: Marijuana General Exam - General Exam Comments Initial Comments: GENERAL: Patient is well-developed and well-nourished. Patient is nontoxic and in mild distress. HEAD: Atraumatic, normocephalic. EYES: Pupils equal round and reactive to light, extraocular movements intact, sclera anicteric, conjunctiva are normal. Eyelids were unremarkable. ENT: Nares patent, oropharynx clear without exudates. Moist mucous membranes. NECK: Normal range of motion, supple without lymphadenopathy or JVD. LUNGS: Unlabored respirations. Breath sounds clear to auscultation bilaterally and equal. No wheezes rales or rhonchi. HEART: Regular rate and rhythm without murmurs, rubs or gallops. ABDOMEN: Soft, nontender, normoactive bowel sounds. No guarding, no rebound. No masses appreciated. : Deferred MUSCULOSKELETAL: Normal extremities with adequate strength and normal range of motion, no pitting or edema. No clubbing or cyanosis. NEUROLOGICAL: Patient is alert and oriented x 3. Motor and sensory are also intact. Normal speech, normal gait. PSYCH: Normal mood, normal affect. SKIN: Warm, Dry, normal turgor, no rashes. Patient has dog bite wounds to the posterior right upper inner thigh, posterior lateral right thigh, as well as the posterior left inner thigh. Limitations: no limitations Course Vital Signs 06/18/20 15:17 Temperature 99.4 F Pulse Rate 117 H Respiratory 22 Rate Blood Pressure 135/80 O2 Sat by Pulse 99 Oximetry Medical Decision Making - Medical Decision Making Patient is a 24-year-old female here with 3 separate dog bite wounds to the posterior legs. The dog is her [id number], rabies are up to date. Patient's tetanus vaccine is up-to-date as well. Wounds were cleaned, topical antibiotic was applied and bandage. The patient received Toradol for pain control. I will start her on Augmentin for an antibiotic and send her home with some pain medicine as well. Recommended keeping areas clean and dry, ice to the area for pain. She can follow up with her regular doctor. Patient is stable for discharge. Patient is in agreement with this plan of care. Return parameters were discussed with the patient and they verbalized understanding. Case discussed with Dr. Ruiz. Disposition Clinical Impression: Dog bite of right thigh, Dog bite of left thigh Disposition: HOME SELF-CARE Condition: Stable Instructions (If sedation given, give patient instructions): Animal Bite (ED) Additional Instructions: Please return to the Emergency Department if symptoms worsen or any other concerns. Take antibiotic as prescribed. May apply ice to the area for pain and swelling. Keep areas clean and dry, wash daily in the shower as discussed. Please alternate between Tylenol and Motrin for any discomfort. Follow-up with your family doctor. Prescriptions: Amoxicillin/Potassium Clav [Augmentin 875-125 Tablet] 1 tab PO BID 7 Days #14 tab Ibuprofen [Motrin] 600 mg PO Q8HR PRN #30 tab PRN Reason: Pain Is patient prescribed a controlled substance at d/c from ED?: No Referrals: Florin Frye MD [Primary Care Provider] - 1-2 days
[2020-06-18] MEDS ORDERED: ACET/COD 300 MG/30 MG STARTER PACK 6 TAB BTL PO STA (17:43)
== END 2020-06-18 18:06 | disposition home or self-care (01) ==
LOC: EC 14:59
DX: S71.151A Open bite, right thigh, initial encounter (principal); S71.152A Open bite, left thigh, initial encounter; F17.200 Nicotine dependence, unspecified, uncomplicated; W54.0XXA Bitten by dog, initial encounter; Y92.009 Unspecified place in unspecified non-institutional (private) residence as the place of occurrence of the external cause
CPT/HCPCS: 99283; 96372; J1885

== ENCOUNTER 2022-06-28 23:08 | Emergency (ER) | payer OTHER ==
[2022-06-28 23:32] VITALS: RESP 16
--- NOTE | 2022-06-29 00:36 | XR ---
EXAM: XR Chest, 2 Views CLINICAL HISTORY: ITS.REASON XR Reason: cough TECHNIQUE: Frontal and lateral views of the chest. COMPARISON: No relevant prior studies available. FINDINGS: Lungs: Unremarkable. No consolidation. Pleural space: Unremarkable. No pneumothorax. Heart: Unremarkable. No cardiomegaly. Mediastinum: Unremarkable. Bones/joints: Unremarkable. IMPRESSION: Normal chest x-rays.
--- NOTE | 2022-06-29 01:34 | ED ---
General Adult HPI - General Chief complaint: Upper Respiratory Infection Stated complaint: Ear Pain, Sinus Infection Time Seen by Provider: 06/29/22 01:26 Source: patient, RN notes reviewed, old records reviewed Mode of arrival: ambulatory Limitations: no limitations - History of Present Illness Initial comments: 26-year-old female presents for evaluation of cough, congestion, ear pain. Symptoms have been present for the past 2 weeks. Patient felt like she was getting better proximally one week ago but then developed new and worsening symptoms. She states her son was diagnosed with croup. She complains of right ear pain and fullness. She also has had a productive cough with yellow sputum. She had a mild sore throat and nasal congestion. No abdominal pain nausea vomiting. No significant dyspnea. She is a current smoker. She denies any chronic medical conditions. - Related Data Previous Rx's Medication Instructions Recorded Docusate [Colace] 100 mg PO DAILY #15 capsule 04/02/18 Metoclopramide [Reglan] 10 mg PO TID PRN #15 tab 09/05/18 Amoxicillin/Potassium Clav 1 tab PO BID 7 Days #14 tab 06/18/20 [Augmentin 875-125 Tablet] Ibuprofen [Motrin] 600 mg PO Q8HR PRN #30 tab 06/18/20 Azithromycin [Zithromax Z Pack] 1 tab PO DIRECTED #6 tab 06/29/22 methylPREDNISolone Dose Pack 4 mg PO DIRECTED #21 packet 06/29/22 [Medrol Dose Pack] Allergies Allergy/AdvReac Type Severity Reaction Status Date / Time No Known Allergies Allergy Verified 06/18/20 15:19 Review of Systems ROS Statement: Those systems with pertinent positive or pertinent negative responses have been documented in the HPI. ROS Other: All systems not noted in ROS Statement are negative. Past Medical History Additional Past Medical History / Comment(s): PCOS History of Any Multi-Drug Resistant Organisms: None Reported Past Surgical History: Section Past Psychological History: No Psychological Hx Reported Smoking Status: Current every day smoker Past Alcohol Use History: None Reported Past Drug Use History: Marijuana General Exam Limitations: no limitations General appearance: alert, in no apparent distress Head exam: Present: atraumatic, normocephalic Eye exam: Present: normal appearance, PERRL ENT exam: Present: TM's normal bilaterally (Right tympanic membrane is opacified). Absent: normal oropharynx (Mild pharyngeal erythema) Respiratory exam: Present: normal lung sounds bilaterally. Absent: respiratory distress, wheezes, rales, rhonchi Cardiovascular Exam: Present: regular rate, normal rhythm GI/Abdominal exam: Absent: distended, tenderness Extremities exam: Present: normal inspection, normal capillary refill. Absent: pedal edema Neurological exam: Present: alert, oriented X3 Psychiatric exam: Present: normal affect, normal mood Skin exam: Present: warm, dry, intact. Absent: cyanosis, diaphoretic Course Vital Signs 06/28/22 23:26 Temperature 98.3 F Pulse Rate 80 Respiratory 16 Rate Blood Pressure 109/74 O2 Sat by Pulse 100 Oximetry Medical Decision Making - Medical Decision Making Was pt. sent in by a medical professional or institution (, PA, VAMP STRAP IRONER, urgent care, hospital, or shelter...) When possible be specific @ -No Did you speak to anyone other than the patient for history (EMS, parent, family, police, friend...)? What history was obtained from this source @ -No Did you review nursing and triage notes (agree or disagree)? Why? @ -I reviewed and agree with nursing and triage notes Were old charts reviewed (outside hosp., previous admission, EMS record, old EKG, old radiological studies, urgent care reports/EKG's, shelter records)? Report findings @ -No old charts were reviewed Differential Diagnosis (chest pain, altered mental status, abdominal pain women, abdominal pain men, vaginal bleeding, weakness, fever, dyspnea, syncope, headache, dizziness, GI bleed, back pain, seizure, CVA, palpatations, mental health, musculoskeletal)? @ -Differential Fever: Pneumonia, viral URI, endocarditis, myocarditis, pericarditis, otitis, sinusitis, peritonsillar Abscess, retropharyngeal Abscess, epiglottitis, peritonitis, appendicitis, Kate cystitis, diverticulitis, hepatitis, colitis, UTI, PID, TOA, pyelonephritis, prostatitis, epididymitis, meningitis, encephalitis, pulmonary embolism, CVA, thyroid storm, pancreatitis, adrenal crisis, cavernous sinus thrombosis, this is not meant to be an all-inclusive li st. EKG interpreted by me (3pts min.). @ -As above X-rays interpreted by me (1pt min.). @ -Negative for focal pneumonia CT interpreted by me (1pt min.). @ -None done U/S interpreted by me (1pt. min.). @ -None done What testing was considered but not performed or refused? (CT, X-rays, U/S, labs)? Why? @ -None What meds were considered but not given or refused? Why? @ -None Did you discuss the management of the patient with other professionals (professionals i.e. , PA, VAMP STRAP IRONER, lab, RT, psych nurse, social media intern, vamp strap ironer, teacher, radio officer, correctional casework specialist)? Give summary @ -No Was smoking cessation discussed for >3mins.? @ -No Was critical care preformed (if so, how long)? @ -No Were there social determinants of health that impacted care today? How? (Homelessness, low income, unemployed, alcoholism, drug addiction, transportation, low edu. Level, literacy, decrease access to med. care, care home, rehab)? @ -No Was there de-escalation of care discussed even if they declined (Discuss DNR or withdrawal of care, Hospice)? DNR status @ -No What co-morbidities impacted this encounter? (DM, HTN, Smoking, COPD, CAD, Cancer, CVA, ARF, Chemo, Hep., AIDS, mental health diagnosis, sleep apnea, morbid obesity)? @ -Tobacco use Was patient admitted / discharged? Hospital course, mention meds given and route , prescriptions, significant lab abnormalities, going to OR and other pertinent info. @ -26-year-old female with 2 weeks of upper respiratory symptoms. Patient is congested she has a mild pharyngeal erythema. Lungs are clear without respiratory distress. Vital signs are stable. Viral panel is negative. Chest x-ray is negative for focal pneumonia. Given the duration of symptoms I will prescribe antibiotics and a Medrol Dosepak for symptom control. Patient should follow closely with her primary care physician. Return parameters discussed. Undiagnosed new problem with uncertain prognosis? @ -No Drug Therapy requiring intensive monitoring for toxicity (Heparin, Nitro, Insulin, Cardizem)? @ -No Were any procedures done? @ -No Diagnosis/symptom? @ -Upper respiratory infection Acute, or Chronic, or Acute on Chronic? @ -Acute Uncomplicated (without systemic symptoms) or Complicated (systemic symptoms)? @ -default Side effects of treatment? @ -No Exacerbation, Progression, or Severe Exacerbation? @ -No Poses a threat to life or bodily function? How? (Chest pain, [place], [place], pneumonia, PE, COPD, DKA, ARF, appy, cholecystitis, CVA, Diverticulitis, Homicidal, Suicidal, threat to staff... and all critical care pts) @ -No - Lab Data Lab Results 06/29/22 Range/Units 00:13 Influenza Type A (PCR) Not Detected (Not Detectd) Influenza Type B (PCR) Not Detected (Not Detectd) RSV (PCR) Not Detected (Not Detectd) SARS-CoV-2 (PCR) Not Detected (Not Detectd) Disposition Clinical Impression: Upper respiratory tract infection Disposition: HOME SELF-CARE Condition: Good Instructions (If sedation given, give patient instructions): Upper Respiratory Infection (ED) Prescriptions: methylPREDNISolone Dose Pack [Medrol Dose Pack] 4 mg PO DIRECTED #21 packet Azithromycin [Zithromax Z Pack] 1 tab PO DIRECTED #6 tab Is patient prescribed a controlled substance at d/c from ED?: No Referrals: Florin Frye MD [Primary Care Provider] - 1-2 days Time of Disposition: 01:33
[2022-06-29 01:48] VITALS: BP 122/78; PULSE 79; TEMP 98.6
== END 2022-06-29 01:48 | disposition home or self-care (01) ==
LOC: EC 23:08
DX: J06.9 Acute upper respiratory infection, unspecified (principal); F17.200 Nicotine dependence, unspecified, uncomplicated; F12.90 Cannabis use, unspecified, uncomplicated; Z20.822 Contact with and (suspected) exposure to COVID-19
CPT/HCPCS: 71046; 87636; 99283

== ENCOUNTER 2023-10-18 11:58 | Emergency (ER) | payer OTHER ==
[2023-10-18 12:02] VITALS: BP 123/71; PULSE 76; RESP 18; TEMP 98
--- NOTE | 2023-10-18 12:34 | ED ---
Abdominal Pain HPI - General Chief Complaint: Abdominal Pain Stated Complaint: Chest/abd pain Time Seen by Provider: 10/18/23 12:10 Source: patient, RN notes reviewed Mode of arrival: ambulatory Limitations: no limitations - History of Present Illness Initial Comments: 27-year-old female presenting to ER for chief complaint of left lower quadrant abdominal pain x 2 days. She states the pain began suddenly and is described as a sharp, intermittent pain in the left pelvic area. She states she has to lay on her right side as when she lays on her left side she has extreme pain. She does have a history of PCOS and is concerned for a cyst. Denies dysuria, urinary frequency, hematuria, nausea, vomiting, vaginal discharge, vaginal bleeding. She also states that she has been having chest pain over the past few weeks intermittently. States the pain is a dull pain on the left side of her chest. She believes this may be due to her anxiety as she has had this in the past. She is not currently having any chest pain. Denies palpitations or short ness of breath. She does have a history of a heart murmur. Last menstrual period October 05 - Related Data Home Medications Medication Instructions Recorded Confirmed No Known Home Medications 10/18/23 10/18/23 Allergies Allergy/AdvReac Type Severity Reaction Status Date / Time No Known Allergies Allergy Verified 10/18/23 14:04 Review of Systems ROS Statement: Those systems with pertinent positive or pertinent negative responses have been documented in the HPI. ROS Other: All systems not noted in ROS Statement are negative. Past Medical History Additional Past Medical History / Comment(s): PCOS History of Any Multi-Drug Resistant Organisms: None Reported Past Surgical History: Section Past Psychological History: No Psychological Hx Reported Smoking Status: Vaper Past Alcohol Use History: None Reported Past Drug Use History: Marijuana General Exam Limitations: no limitations General appearance: alert, in no apparent distress Head exam: Present: atraumatic, normocephalic, normal inspection Eye exam: Present: normal appearance, PERRL, EOMI. Absent: scleral icterus, conjunctival injection, periorbital swelling ENT exam: Present: normal exam, mucous membranes moist Respiratory exam: Present: normal lung sounds bilaterally. Absent: respiratory distress, wheezes, rales, rhonchi, stridor Cardiovascular Exam: Present: regular rate, normal rhythm, normal heart sounds. Absent: systolic murmur, diastolic murmur, rubs, gallop, clicks GI/Abdominal exam: Present: soft, tenderness (Point tenderness on left pelvic area), normal bowel sounds. Absent: distended, guarding, rebound, rigid Extremities exam: Present: normal inspection, full ROM, normal capillary refill. Absent: tenderness, pedal edema, joint swelling, calf tenderness Back exam: Present: normal inspection. Absent: CVA tenderness (R), CVA tenderness (L) Neurological exam: Present: alert, oriented X3 Psychiatric exam: Present: normal affect, normal mood Skin exam: Present: warm, dry, intact, normal color. Absent: rash Course Vital Signs 10/18/23 12:00 Temperature 98 F Pulse Rate 76 Respiratory 18 Rate Blood Pressure 123/71 O2 Sat by Pulse 98 Oximetry Medical Decision Making - Medical Decision Making Was pt. sent in by a medical professional or institution (, PA, OBIEE CONSULTANT, urgent care, hospital, or snf...) When possible be specific @ -No Did you speak to anyone other than the patient for history (EMS, parent, family, police, friend...)? What history was obtained from this source @ -No Did you review nursing and triage notes (agree or disagree)? Why? @ -I reviewed and agree with nursing and triage notes Were old charts reviewed (outside hosp., previous admission, EMS record, old EKG, old radiological studies, urgent care reports/EKG's, snf records)? Report findings @ -No old charts were reviewed Differential Diagnosis (chest pain, altered mental status, abdominal pain women, abdominal pain men, vaginal bleeding, weakness, fever, dyspnea, syncope, headache, dizziness, GI bleed, back pain, seizure, CVA, palpatations, mental health, musculoskeletal)? @ -Differential Abdominal Pain Women: Appendicitis, Cholecystitis, diverticulosis, ischemic bowel, pancreatitis, hepatitis, UTI, gastroenteritis, AAA, incarcerated hernia, bowel obstruction, constipation, inflammatory bowel, hepatitis, peptic ulcer disease, splenic infarction, perforated viscus, vulvitis, ovarian torsion, PID, kidney stone, placenta abruption, this is not meant to be an all-inclusive list EKG interpreted by me (3pts min.). @ -As above X-rays interpreted by me (1pt min.). @ -Chest x-ray reveals no acute process CT interpreted by me (1pt min.). @ -None done U/S interpreted by me (1pt. min.). @ -Pelvic ultrasound reveals no acute process, there is appropriate arterial and venous spectral waveforms to ovaries What testing was considered but not performed or refused? (CT, X-rays, U/S, labs)? Why? @ -None What meds were considered but not given or refused? Why? @ -Patient declines pain medication at this time Did you discuss the management of the patient with other professionals (professionals i.e. , PA, OBIEE CONSULTANT, lab, RT, psych nurse, social security specialist, telecommunications equipment installer, teacher, agricultural technical officer, case technician)? Give summary @ -No Was smoking cessation discussed for >3mins.? @ -No Was critical care preformed (if so, how long)? @ -No Were there social determinants of health that impacted care today? How? (Homelessness, low income, unemployed, alcoholism, drug addiction, transportation, low edu. Level, literacy, decrease access to med. care, nursing home, rehab)? @ -No Was there de-escalation of care discussed even if they declined (Discuss DNR or withdrawal of care, Hospice)? DNR status @ -No What co-morbidities impacted this encounter? (DM, HTN, Smoking, COPD, CAD, Cancer, CVA, ARF, Chemo, Hep., AIDS, mental health diagnosis, sleep apnea, morbid obesity)? @ -None Was patient admitted / discharged? Hospital course, mention meds given and route, prescriptions, significant lab abnormalities, going to OR and other p ertinent info. @ -Patient was discharged. Patient was seen and evaluated for left pelvic pain. Patient has also been having intermittent chest pain but denies current symptoms. no red flag symptoms. Lab work including CBC, CMP, lactic acid, lipase, troponin is unremarkable. EKG reveals sinus bradycardia with sinus arrhythmia. Chest x-ray reveals no acute process. Urine reveals trace protein, urine negative. Ultrasound of pelvis reveals no acute process, there is appropriate arterial and venous spectral waveforms to ovaries. Discussed with patient there are no signs of emergent etiology causing symptoms today. Symptoms are likely related to mittelschmerz as patient is likely ovulating at this time. Advised to follow closely with gynecology if symptoms persist. Return precautions discussed and patient is agreeable to plan. Case was discussed with my ED attending Dr. Oleary. Patient discharged in stable condition. Undiagnosed new problem with uncertain prognosis? @ -No Drug Therapy requiring intensive monitoring for toxicity (Heparin, Nitro, Insulin, Cardizem)? @ -No Were any procedures done? @ -No Diagnosis/symptom? @ -Left pelvic pain, chest pain Acute, or Chronic, or Acute on Chronic? @ -Acute Uncomplicated (without systemic symptoms) or Complicated (systemic symptoms)? @ -Uncomplicated Side effects of treatment? @ -No Exacerbation, Progression, or Severe Exacerbation? @ -No Poses a threat to life or bodily function? How? (Chest pain, [place], [place], pneumonia, PE, COPD, DKA, ARF, appy, cholecystitis, CVA, Diverticulitis, Homicidal, Suicidal, threat to staff... and all critical care pts) @ -Unlikely at this time - Lab Data Result diagrams: 10/18/23 12:46 10/18/23 12:46 Lab Results 10/18/23 10/18/23 10/18/23 Range/Units 12:46 12:46 12:46 WBC 6.2 (3.8-10.6) k/uL RBC 4.21 (3.80-5.40) m/uL Hgb 13.4 (11.4-16.0) gm/dL Hct 39.4 (34.0-46.0) % MCV 93.4 (80.0-100.0) fL MCH 31.7 (25.0-35.0) pg MCHC 33.9 (31.0-37.0) g/dL RDW 11.8 (11.5-15.5) % Plt Count 270 (150-450) k/uL MPV 6.4 Neutrophils % 59 % Lymphocytes % 26 % Monocytes % 9 % Eosinophils % 4 % Basophils % 0 % Neutrophils # 3.7 (1.3-7.7) k/uL Lymphocytes # 1.7 (1.0-4.8) k/uL Monocytes # 0.5 (0-1.0) k/uL Eosinophils # 0.2 (0-0.7) k/uL Basophils # 0.0 (0-0.2) k/uL Sodium 136 L (137-145) mmol/L Potassium 4.2 (3.5-5.1) mmol/L Chloride 107 (98-107) mmol/L Carbon Dioxide 22 (22-30) mmol/L Anion Gap 7 mmol/L BUN 20 H (7-17) mg/dL Creatinine 0.63 (0.52-1.04) mg/dL Est GFR (CKD-EPI)AfAm >90 (>60 ml/min/1.73 sqM) Est GFR (CKD-EPI)NonAf >90 (>60 ml/min/1.73 sqM) Glucose 78 (74-99) mg/dL Plasma Lactic Acid [place] (0.7-2.0) mmol/L Calcium 9.6 (8.4-10.2) mg/dL Total Bilirubin 0.6 (0.2-1.3) mg/dL AST 28 (14-36) U/L ALT 29 (4-34) U/L Alkaline Phosphatase 67 (38-126) U/L Troponin I (0.000-0.034) ng/mL Total Protein 7.1 (6.3-8.2) g/dL Albumin 4.6 (3.5-5.0) g/dL Lipase 31 (23-300) U/L Urine Color Yellow Urine Appearance Clear (Clear) Urine pH 6.5 (5.0-8.0) Ur Specific [place] 1.026 (1.001-1.035) Urine Protein Trace H (Negative) Urine Glucose (UA) Negative (Negative) Urine Ketones Negative (Negative) Urine Blood Negative (Negative) Urine Nitrite Negative (Negative) Urine Bilirubin Negative (Negative) Urine Urobilinogen <2.0 (<2.0) mg/dL Ur Leukocyte Esterase Negative (Negative) Urine HCG, Qual (Not Detectd) 10/18/23 10/18/23 10/18/23 Range/Units 12:46 12:46 12:46 WBC (3.8-10.6) k/uL RBC (3.80-5.40) m/uL Hgb (11.4-16.0) gm/dL Hct (34.0-46.0) % MCV (80.0-100.0) fL MCH (25.0-35.0) pg MCHC (31.0-37.0) g/dL RDW (11.5-15.5) % Plt Count (150-450) k/uL MPV Neutrophils % % Lymphocytes % % Monocytes % % Eosinophils % % Basophils % % Neutrophils # (1.3-7.7) k/uL Lymphocytes # (1.0-4.8) k/uL Monocytes # (0-1.0) k/uL Eosinophils # (0-0.7) k/uL Basophils # (0-0.2) k/uL Sodium (137-145) mmol/L Potassium (3.5-5.1) mmol/L Chloride (98-107) mmol/L Carbon Dioxide (22-30) mmol/L Anion Gap mmol/L BUN (7-17) mg/dL Creatinine (0.52-1.04) mg/dL Est GFR (CKD-EPI)AfAm (>60 ml/min/1.73 sqM) Est GFR (CKD-EPI)NonAf (>60 ml/min/1.73 sqM) Glucose (74-99) mg/dL Plasma Lactic Acid [place] 0.7 (0.7-2.0) mmol/L Calcium (8.4-10.2) mg/dL Total Bilirubin (0.2-1.3) mg/dL AST (14-36) U/L ALT (4-34) U/L Alkaline Phosphatase (38-126) U/L Troponin I <0.012 (0.000-0.034) ng/mL Total Protein (6.3-8.2) g/dL Albumin (3.5-5.0) g/dL Lipase (23-300) U/L Urine Color Urine Appearance (Clear) Urine pH (5.0-8.0) Ur Specific [place] (1.001-1.035) Urine Protein (Negative) Urine Glucose (UA) (Negative) Urine Ketones (Negative) Urine Blood (Negative) Urine Nitrite (Negative) Urine Bilirubin (Negative) Urine Urobilinogen (<2.0) mg/dL Ur Leukocyte Esterase (Negative) Urine HCG, Qual Not Detected (Not Detectd) - EKG Data -: EKG Interpreted by Me EKG Comments: EKG reveals sinus bradycardia with sinus arrhythmia, no ST changes. Ventricular rate 51 bpm, NC interval 186, QRS duration 90, QT/QTc 388/364 Disposition Clinical Impression: Pelvic pain Disposition: HOME SELF-CARE Condition: Stable Additional Instructions: Please follow-up with gynecology if symptoms persist. Please return to the Emergency Department if symptoms worsen or any other concerns. Is patient prescribed a controlled substance at d/c from ED?: No Referrals: None,Stated [Primary Care Provider] - 1-2 days Time of Disposition: 15:17
[2023-10-18 12:55] LABS: Basophils % (A) 0 %; Eosinophils # (A) 0.2 k/uL (0-0.7); Eosinophils % (A) 4 %; HCT 39.4 % (34.0-46.0); HGB 13.4 gm/dL (11.4-16.0); Lymphocytes # (A) 1.7 k/uL (1.0-4.8); Lymphocytes % (A) 26 %; MCH 31.7 pg (25.0-35.0); MCHC 33.9 g/dL (31.0-37.0); MCV 93.4 fL (80.0-100.0); Mean Platelet Volume 6.4; Monocytes # (A) 0.5 k/uL (0-1.0); Monocytes % (A) 9 %; Neutrophils # (A) 3.7 k/uL (1.3-7.7); Neutrophils % (A) 59 %; Platelet Count 270 k/uL (150-450); RBC 4.21 m/uL (3.80-5.40); RDW 11.8 % (11.5-15.5); WBC 6.2 k/uL (3.8-10.6)
[2023-10-18 13:09] LABS: Appearance,Urine Clear (Clear); Bilirubin,Urine Negative (Negative); Blood,Urine Negative (Negative); Color,Urine Yellow; Glucose,Urine (UA) Negative (Negative); Ketones,Urine Negative (Negative); Leukocyte Esterase,Urine Negative (Negative); Nitrite,Urine Negative (Negative); PH, Urine 6.5 (5.0-8.0); Protein,Urine Trace (Negative); Specific Gravity,Urine 1.026 (1.001-1.035); Urobilinogen,Urine <2.0 mg/dL (<2.0)
--- NOTE | 2023-10-18 13:11 | XR ---
EXAMINATION TYPE: XR chest 2V DATE OF EXAM: 10/18/2023 1:00 PM CLINICAL INDICATION:Female, 27 years old with history of chest pain; COMPARISON: Chest radiographs from 06/29/2022. TECHNIQUE: XR chest 2V Frontal view of the chest. FINDINGS: Lungs/Pleura: There is no evidence of pleural effusion, focal consolidation, or pneumothorax. Pulmonary vascularity: Unremarkable. Heart/mediastinum: Cardiomediastinal silhouette is unremarkable. Musculoskeletal: No acute osseous pathology. Other findings: None IMPRESSION: No acute cardiopulmonary disease/process.
--- NOTE | 2023-10-18 14:20 | US ---
EXAMINATION TYPE: US transvaginal DATE OF EXAM: 10/18/2023 COMPARISON: 04/13/18 CLINICAL INDICATION: Female, 27 years old with history of left pelvic pain; LLQ pain x 5 days. TECHNIQUE: Transvaginal (TV). Date of LMP: 10/08/23 EXAM MEASUREMENTS: Uterus: 8.0 x 5.0 x 3.2 cm Endometrial Stripe: 0.4 cm Right Ovary: 3.3 x 2.7 x 2.0 cm Left Ovary: 3.7 x 2.8 x 1.7 cm 1. Uterus: Anteverted wnl 2. Endometrium: small amount of fluid seen inside 3. Right Ovary: multiple follicles seen 4. Left Ovary: multiple follicles seen Spectral, color and waveform doppler imaging shows good arterial and venous flow within the ovaries ; there is no evidence for ovarian torsion. 5. Bilateral Adnexa: The vessels appear to be dilated in the left adnexa 6. Posterior cul-de-sac: small amount of free fluid seen. IMPRESSION: 1. No evidence for acute process. 2. Appropriate arterial and venous spectral waveforms to the ovaries.
[2023-10-18 14:46] LABS: ALT 29 U/L (4-34); AST 28 U/L (14-36); African American GFR (CKD) >90 (>60 ml/min/1.73 sqM); Albumin 4.6 g/dL (3.5-5.0); Alkaline Phosphatase 67 U/L (38-126); Anion Gap 7 mmol/L; Blood Urea Nitrogen 20 mg/dL (7-17); Calcium 9.6 mg/dL (8.4-10.2); Carbon Dioxide 22 mmol/L (22-30); Chloride 107 mmol/L (98-107); Glucose 78 mg/dL (74-99); Lipase 31 U/L (23-300); Non-African American GFR(CKD) >90 (>60 ml/min/1.73 sqM); Potassium 4.2 mmol/L (3.5-5.1); Sodium 136 mmol/L (137-145); Total Bilirubin 0.6 mg/dL (0.2-1.3); Total Protein 7.1 g/dL (6.3-8.2)
== END 2023-10-18 15:30 | disposition home or self-care (01) ==
LOC: EC 11:58
DX: R10.2 Pelvic and perineal pain (principal); I49.8 Other specified cardiac arrhythmias; R00.1 Bradycardia, unspecified; F17.290 Nicotine dependence, other tobacco product, uncomplicated
CPT/HCPCS: 36415; 71046; 76830; 80053; 81003; 81025; 83605; 83690; 84484; 85025; 93005; 93975; 99284